=== PATIENT | female | born 1945 | race Asian ===

== ENCOUNTER → 2016-09-25 | Outpatient (CLI) | payer BC ==
--- NOTE | 2016-09-25 12:33 | Diagnostic Imaging Report ---
Indication: Cough Comparison: 04/05/12 2 views of the chest obtained. No definite infiltrate or pulmonary vascular congestion identified. Sternotomy noted. The heart is enlarged. The aorta is mildly enlarged consistent with atherosclerotic vascular disease. The bones are osteopenic. There are surgical clips in the upper abdomen. Impression: No acute disease
== END | disposition home or self-care (01) ==
LOC: RAD 09:29
DX: R05 Cough (principal); M85.80 Other specified disorders of bone density and structure, unspecified site
CPT/HCPCS: 71020

== ENCOUNTER 2016-09-30 07:57 | Outpatient (CLI) | payer BC ==
--- NOTE | 2016-09-30 12:24 | Diagnostic Imaging Report ---
Indication: Osteopenia Technique: Transaxial images of the L1, L2, and L3 vertebral bodies obtained in a Siemens sensation [address] Regions of interest were drawn for both cortical and medullary portions of the bone. Average bone then calculated. Total Dose length Product (DLP): [address] Dose Index Volume (CTDIvol): 0.4, 4.05, 4.32, 4.67 mGy Findings: The patient's bone mineral density is 95.2 mg Ca-ARTHUR/ml. The T score is -2.32 this means that the patient's average bone mineral density is -2.32 standard deviations less than a typical 20-year-old female. The patient's Z score is 0.52. This means that the patient's average bone mineral density is 0.52 standard deviations greater than age-matched controls. Impression: Bone mineral density is 10-25% below that of young normal females. This patient is considered osteopenic by WHO criteria. Insufficiency fracture risk is moderate. The CT scanner at [facility] is accredited by the [employer] and the scans are performed using protocols designed to limit radiation exposure to as low as reasonably achievable to attain images of sufficient resolution adequate for diagnostic evaluation.
== END 2016-09-30 10:30 | disposition home or self-care (01) ==
LOC: CAT 07:57
DX: Z13.820 Encounter for screening for osteoporosis (principal); M85.80 Other specified disorders of bone density and structure, unspecified site
CPT/HCPCS: 77078; G0202; 77067

== ENCOUNTER 2019-01-11 07:03 | Day surgery (SDC) | payer BC ==
[2019-01-05 08:25] LABS: BASOPHILS % (AUTO) 0.9 % (0.0-2.0); EOSINOPHILS % (AUTO) 0.8 % (0.0-3.0); HEMATOCRIT 40.1 % (37.0-47.0); HEMOGLOBIN 13.1 G/DL (12.0-16.0); MEAN CORPUSCULAR VOLUME 93 FL (80-99); MONOCYTES % (AUTO) 7.4 % (1.0-10.0); NEUTROPHILS % (AUTO) 50.8 % (45.0-75.0); PLATELET COUNT 127 K/UL (150-450); RED BLOOD COUNT 4.31 M/UL (4.20-5.40); RED CELL DISTRIBUTION WIDTH 12.5 % (11.6-14.8); WHITE BLOOD COUNT 5.8 K/UL (4.8-10.8)
[2019-01-05 08:42] LABS: ALANINE AMINOTRANSFERASE 37 U/L (12-78); ALBUMIN 4.1 G/DL (3.4-5.0); ALBUMIN/GLOBULIN RATIO 0.9 (1.0-2.7); ALKALINE PHOSPHATASE 55 U/L (46-116); ANION GAP 8 mmol/L (5-15); ASPARTATE AMINO TRANSFERASE 30 U/L (15-37); BILIRUBIN,TOTAL 0.5 MG/DL (0.2-1.0); BLOOD UREA NITROGEN 22 mg/dL (7-18); CALCIUM 9.6 MG/DL (8.5-10.1); CARBON DIOXIDE 27 MMOL/L (21-32); CHLORIDE 103 MMOL/L (98-107); CHOLESTEROL 164 MG/DL (< 200); CREATININE 0.8 MG/DL (0.55-1.30); HDL CHOLESTEROL 66 MG/DL (40-60); POTASSIUM 4.5 MMOL/L (3.5-5.1); SODIUM 138 MMOL/L (136-145); TRIGLYCERIDES 76 MG/DL (30-150)
[~2019-01-11] VITALS: Ht 157.5 cm; Wt 64.0 kg
[2019-01-11] VITALS (8 sets, daily range): BP systolic 102–123; BP diastolic 58–73
[~2019-01-11 07:03] MED LIST: ASPIRIN-LOW81 MG ORAL; BENICAR5 MG ORAL; JANUMET 50-1,01 EACH ORAL; LOPRESSOR HCT1 EAC3 ORAL; MAGNESIUM100 MG PO; NORVASC5 MG ORAL; VITAMIN B125000 MCG PO; ZOCOR10 MG ORAL
--- NOTE | 2019-01-11 07:12 | Pre-Procedure Note/Attestation ---
Pre-Procedure Note/Attestation Complete Prior to Procedure Planned Procedure: left - Removal of cataract and placement of intraocular lens , left eye Procedure Narrative: Removal of cataract and placement of intraocular lens, left eye Indications for Procedure Pre-Operative Diagnosis: Cataract, combined, left eye Attestation I attest that I discussed the nature of the procedure; its benefits; risks and complications; and alternatives (and the risks and benefits of such alternatives ), prior to the procedure, with the patient (or the patient's legal ocean import representative). I attest that, if there was a reasonable possibility of needing a blood transfusion, the patient (or the patient's legal ocean import representative) was given the [place] [facility] Services standardized written summary, pursuant to the [place] Blood Safety Act ([place] Health and Safety Code # 1645, as amended). I attest that I re-evaluated the patient just prior to the surgery and that there has been no change in the patient's H&P, except as documented below: Constantine Najera MD Jan 11, 2019 07:11
[2019-01-11] MEDS: Akten 3.5% 1ml Btl LEFT EYE SCH ×3 (08:03→08:34)
[2019-01-11] MEDS: Cyclopentolate 1% Opth Sol 2ml LEFT EYE SCH ×3 (08:04→08:33)
[2019-01-11] MEDS: Tobradex Opth Susp 2.5ml LEFT EYE SCH ×3 (08:04→08:34)
[2019-01-11] MEDS: Flurbiprofen 0.03% Opth Sol 2.5ml LEFT EYE SCH ×3 (08:04→08:34)
[2019-01-11] MEDS: Phenylephrine 10% Opth Soln 5ml LEFT EYE SCH ×3 (08:04→08:33)
[2019-01-11] MEDS: Ciprofloxacin Opth Soln 2.5ml LEFT EYE SCH ×3 (08:04→08:34)
[2019-01-11] MEDS: Tropicamide 1% Opth 15ml Soln LEFT EYE SCH ×3 (08:04→08:33)
[2019-01-11] MEDS ORDERED: Pred Forte 1% Opth Susp 1ml ONE (09:01)
[2019-01-11] MEDS ORDERED: Lidocaine 1% MPF 10mg/ml 5ml ONE ×2 (09:01→09:30)
[2019-01-11] MEDS ORDERED: Fluorescein Strips ONE (09:01)
[2019-01-11] MEDS ORDERED: EPINEPHrine 1mg/1ml Amp ONE (09:01)
[2019-01-11] MEDS ORDERED: Timolol 0.5% Op Soln 2.5ml ONE (09:01)
[2019-01-11] MEDS ORDERED: Carbachol 0.01% Op Soln 1.5ml vial ONE (09:01)
[2019-01-11] MEDS ORDERED: Dexamethasone 4mg/ml vial ONE (09:02)
[2019-01-11] MEDS ORDERED: Povidone-Iodine 5% opth solution ONE (09:02)
[2019-01-11] MEDS ORDERED: BSS 500ml btl ONE (09:02)
[2019-01-11] MEDS ORDERED: Polysporin Opth Oint 3.5gm ONE (09:02)
[2019-01-11] MEDS ORDERED: Tetracaine 0.5% Opth 4ml Soln ONE (09:02)
[2019-01-11] MEDS ORDERED: BSS 15ml BTL ONE (09:02)
[2019-01-11] MEDS ORDERED: Acetylcholine Injection (OR) ONE (09:02)
[2019-01-11] MEDS ORDERED: Sodium Hyaluronate 10 mg/ml 0.85ml ONE ×2 (09:03→10:39)
[2019-01-11] MEDS ORDERED: Bupivacaine 0.75% 30ml vial INJ ONE (09:03)
[2019-01-11] MEDS ORDERED: Sterile Water Irrig 1000ml IRRIG ONE (09:30)
[2019-01-11] MEDS ORDERED: LR 1000ml ONE (09:30)
[2019-01-11] MEDS ORDERED: Propofol 200mg/20ml IV ONE (09:30)
[2019-01-11] MEDS ORDERED: NS Irrig 1000ml ONE (09:30)
[2019-01-11] MEDS ORDERED: LR 1000ml 1,000 ML IVLG SCH (09:36)
--- NOTE | 2019-01-11 09:39 | Anethesia Preoperative Eval ---
Anesthesia Pre-op PMH/ROS General Date of Evaluation: Jan 11, 2019 Time of Evaluation: 09:24 Anesthesiologist: Asuncion ASA Score: ASA 3 Mallampati Score Class I : Soft palate, uvula, fauces, pillars visible Class II: Soft palate, uvula, fauces visible Class III: Soft palate, base of uvula visible Class IV: Only hard plate visible Mallampati Classification: Class II Surgeon: Reinaldo Diagnosis: Cataract OS Surgical Procedure: Cat Ext IOL OS Anesthesia History: none Family History: no anesthesia problems Allergies: Coded Allergies: No Known Allergies (Unverified , 04/08/14) Medications: see eMAR Patient NPO?: Yes Past Medical History Cardiovascular: Reports: HTN, valve dz - Aortic Valve replacement, other - HL Gastrointestinal/Genitourinary: Reports: GERD Endocrine: Reports: DM HEENT: Reports: cataract (L) PSxH Narrative: Oophorectomy, TL, Cholecystectomy, AVR Anesthesia Pre-op Phys. Exam Physician Exam Last Vital Signs Date Time Temp Pulse Resp B/P (MAP) Pulse Ox O2 Delivery O2 Flow Rate FiO2 01/11/19 08:11 97.3 77 18 123/73 96 Room Air Constitutional: NAD Neurologic: CN 2-12 intact Cardiovascular: RRR Respiratory: CTA Gastrointestinal: S/NT/ND Airway Exam Mallampati Score: Class II MO: limited ROM: limited Teeth: missing, intact Anesthesia Pre-op A/P Risk Assessment & Plan Assessment: ASA 3 Plan: TIVA Status Change Before Surgery: No J Luis Roland MD Jan 11, 2019 09:39
[2019-01-11] MEDS ORDERED: Meperidine 50mg/ml Inj(FOR RIGORS ONLY) IVP PRN (09:45)
[2019-01-11] MEDS ORDERED: Labetalol 5mg/ml 20ml vial IV PRN (09:45)
[2019-01-11] MEDS ORDERED: HYDROcodone/Acetamin 7.5/325 tab ORAL PRN (09:45)
[2019-01-11] MEDS ORDERED: Metoclopramide 10mg/2ml Inj IVP PRN (09:45)
[2019-01-11] MEDS ORDERED: LORazepam Inj 2mg/ml 1ml IV PRN (09:45)
[2019-01-11] MEDS ORDERED: Hydromorphone 0.5mg/0.5ml inj IVP PRN (09:45)
[2019-01-11] MEDS ORDERED: HYDROcodone/Acetamin 5/325 tab ORAL PRN (09:45)
[2019-01-11] MEDS ORDERED: Midazolam 2mg/2ml Inj IVP PRN (09:45)
[2019-01-11] MEDS ORDERED: Ketorolac 30mg Inj IV PRN ×2 (09:45)
[2019-01-11] MEDS ORDERED: DiphenhydrAMINE 50mg/ml Inj IVP PRN (09:45)
[2019-01-11] MEDS ORDERED: Atropine Sulfate 0.4mg/ml inj IVP PRN (09:45)
[2019-01-11] MEDS ORDERED: oxyCODONE HCL/Acetaminophen 5/325mg ORAL PRN (09:45)
[2019-01-11] MEDS ORDERED: fentaNYL 100 mcg/2 mL IV PRN (09:45)
--- NOTE | 2019-01-11 09:51 | Immediate Post-Op Evaluation ---
Immediate Post-Op Evalulation Immediate Post-Op Evalulation Procedure: Cat Ext IOL OS Date of Evaluation: Jan 11, 2019 Time of Evaluation: 10:50 IV Fluids: 600 LR Blood Products: 0 Estimated Blood Loss: 1 Urinary Output: 0 Blood Pressure Systolic: 116 Blood Pressure Diastolic: 65 Pulse Rate: 78 Respiratory Rate: 16 O2 Sat by Pulse Oximetry: 98 Temperature (Fahrenheit): 97 Pain Score (1-10): 1 Nausea: No Vomiting: No Complications 0 Patient Status: awake, reacts, patent, none Hydration Status: adequate J Luis Roland MD Jan 11, 2019 09:51
--- NOTE | 2019-01-11 09:52 | 48 Hour Post Anesthesia Eval ---
Post Anesthesia Evaluation Procedure: Cat Ext IOL OS Date of Evaluation: Jan 11, 2019 Time of Evaluation: 13:09 Blood Pressure Systolic: 118 0: 66 Pulse Rate: 63 Respiratory Rate: 18 Temperature (Fahrenheit): 97.4 O2 Sat by Pulse Oximetry: 97 Airway: patent Nausea: No Vomiting: No Pain Intensity: 1 Hydration Status: adequate Cardiopulmonary Status: Stable Mental Status/LOC: patient returned to baseline Follow-up Care/Observations: 0 Post-Anesthesia Complications: 0 Follow-up care needed: ready to discharge J Luis Roland MD Jan 11, 2019 09:52
--- NOTE | 2019-01-11 10:39 | Discharge Instructions ---
Discharge Instructions Discharge Instructions Follow Up Orders Wear shield at all times except to place eye drops Continue preop eye drops Followup tomorrow in Dr Najera's office For Congestive Heart Failure Reminder Report to your physician any weight gain of 5 pounds or more in one week. Constantine Najera MD Jan 11, 2019 10:39
--- NOTE | 2019-01-11 10:43 | Brief Operative Note ---
Immediate Post Operative Note Operative Note Pre-op Diagnosis: Cataract, combined, left eye Procedure: Phaco PC IOL OS Use of vision blue for capsular staining Post-op Diagnosis: Cataract, combined, OS Post-op Diagnosis: same as pre-op Surgeon: Misha Najera MD MS Additional Surgeons: none Anesthesiologist: Dr Roland Anesthesia: local, MAC Specimen: none Complications: none Fluids: see chart Implant(s) used?: Yes - [employer]idson [employer] ZCB00 power 19.0 Constantine Najera MD Jan 11, 2019 10:43
--- NOTE | 2019-01-11 16:45 | Operative Note - Dictated ---
DATE OF OPERATION: 01/11/2019 SURGEON: Constantine Najera M.D. FRONT END WEB DESIGNER SURGEON: None. ANESTHESIOLOGIST: Dr. J Luis Roland. ANESTHESIA: Local/standby/monitored anesthesia care. PREOPERATIVE DIAGNOSIS: Cataract, combined, left eye. POSTOPERATIVE DIAGNOSIS: Cataract, combined, left eye. PROCEDURE: 1. Phacoemulsification of cataract, left eye. 2. Placement of posterior chamber intraocular lens, left eye (model Agarwal, [employer]ecnis, ZCB00, power 19.0). 3. Use of VisionBlue for capsular staining. COMPLICATIONS: None. SPECIMENS: None. INDICATIONS FOR SURGERY: The patient has had the painless progressive decrease in visual acuity in left eye secondary to cataract. The patient understands the risks of surgery including infection, bleeding, need for further surgery, loss of vision, no improvement in vision, loss of the eye, loss of life, glaucoma, retinal detachment, and understands these risks and elects to proceed with surgery. FINDINGS: The patient had a +3 posterior subcapsular cataract in addition to a +3 nuclear cataract and +3 cortical cataract with +3 anterior subcapsular changes. This made it very difficult to visualize the anterior capsule. Using the red reflex and VisionBlue for capsular staining was needed and was used during the procedure without complications. OPERATIVE NOTE: After informed consent was obtained, the patient was brought into the operating room and placed in supine position. Cardiac and respiratory monitors were attached. A time-out was performed and all criteria were met and everyone in the room agreed. The left eye was then draped and prepped in sterile manner for ocular surgery. A lid speculum was placed in the eye. A 1% lidocaine preservative-free was injected at the approximate 2:30 limbus. A conjunctival peritomy from approximately 2 o'clock to 3 o'clock was made and dissected anteriorly. Hemostasis was maintained with bipolar cautery. A paracentesis was made approximately 5:30 and Shugarcaine was injected into the anterior chamber followed by an air bubble. VisionBlue was then injected into the anterior chamber and the anterior capsule was stained and then the Vision Blue was irrigated from the anterior chamber. The anterior chamber was then entered using a 2.6 mm keratome through the limbal incision. An anterior capsulorrhexis was then performed. Hydrodissection and hydrodelineation of the lens was then performed. The lens was then phacoemulsified using divide and conquer four-quadrant technique. Residual cortical material was then aspirated. Healon was injected into the anterior chamber and capsular bag. The lens was taken from its package, placed into the cartridge and the tip of the cartridge was placed through the limbal incision. The lens was injected into the capsular bag and centered nicely with a Sinskey hook. Healon was then aspirated from the anterior chamber and capsular bag. One 10-0 nylon interrupted suture was then placed through the limbal incision, the knot was rotated and buried. Care was taken during the entire procedure not to touch the endothelium. The wounds were checked and found to be watertight. The wounds were also hydrated closed. The conjunctiva was then closed with forceps cautery. The lid speculum drapes and the drain was removed from the eye and drops of Pred Forte, TobraDex, and ciprofloxacin were applied to the eye followed by bacitracin ointment and a shield. The patient tolerated the procedure well and left the operating room awake, alert, and in stable condition. Constantine Najera M.D. DR: KELTON JOB#: [id number] CC:
== END 2019-01-11 11:55 | disposition home or self-care (01) ==
LOC: SUR 07:03
DX: H25.042 Posterior subcapsular polar age-related cataract, left eye (principal); H25.12 Age-related nuclear cataract, left eye; H25.012 Cortical age-related cataract, left eye; I10 Essential (primary) hypertension; E78.00 Pure hypercholesterolemia, unspecified; E11.9 Type 2 diabetes mellitus without complications; Z95.2 Presence of prosthetic heart valve; K21.9 Gastro-esophageal reflux disease without esophagitis; Z90.721 Acquired absence of ovaries, unilateral; Z90.49 Acquired absence of other specified parts of digestive tract
CPT/HCPCS: 36415; 66984; 80053; 80061; 82306; 82607; 82962; 83735; 85025; 85610; 85730; J0171; J1100; J2704; V2632; 94003; 94150

== ENCOUNTER 2019-07-12 08:52 | Day surgery (SDC) | payer BC ==
[2019-07-07 08:47] LABS: ALANINE AMINOTRANSFERASE 30 U/L (12-78); ALBUMIN/GLOBULIN RATIO 0.8 (1.0-2.7); ALKALINE PHOSPHATASE 55 U/L (46-116); ANION GAP 9 mmol/L (5-15); ASPARTATE AMINO TRANSFERASE 25 U/L (15-37); BILIRUBIN,TOTAL 0.3 MG/DL (0.2-1.0); BLOOD UREA NITROGEN 31 mg/dL (7-18); CALCIUM 9.9 MG/DL (8.5-10.1); CARBON DIOXIDE 27 MMOL/L (21-32); CHLORIDE 109 MMOL/L (98-107); CHOLESTEROL 158 MG/DL (< 200); CREATININE 1.1 MG/DL (0.55-1.30); HDL CHOLESTEROL 60 MG/DL (40-60); POTASSIUM 4.9 MMOL/L (3.5-5.1); SODIUM 145 MMOL/L (136-145); TRIGLYCERIDES 84 MG/DL (30-150)
[2019-07-07 08:48] LABS: BASOPHILS % (AUTO) 0.7 % (0.0-2.0); EOSINOPHILS % (AUTO) 0.5 % (0.0-3.0); HEMATOCRIT 39.5 % (37.0-47.0); HEMOGLOBIN 13.6 G/DL (12.0-16.0); LYMPHOCYTES % (AUTO) 39.5 % (20.0-45.0); MEAN CORPUSCULAR VOLUME 87 FL (80-99); MONOCYTES % (AUTO) 7.3 % (1.0-10.0); PLATELET COUNT 118 K/UL (150-450); RED BLOOD COUNT 4.52 M/UL (4.20-5.40); RED CELL DISTRIBUTION WIDTH 12.2 % (11.6-14.8); WHITE BLOOD COUNT 4.9 K/UL (4.8-10.8)
[2019-07-12] VITALS (7 sets, daily range): BP systolic 110–154; BP diastolic 66–77
[~2019-07-12] VITALS: Ht 157.5 cm; Wt 59.0 kg
[~2019-07-12 08:52] MED LIST changes: +PROTONIX20 MG ORAL
[2019-07-12] MEDS ORDERED: Lidocaine 1% MPF 10mg/ml 5ml ONE ×2 (10:03→12:00)
[2019-07-12] MEDS ORDERED: Carbachol 0.01% Op Soln 1.5ml vial ONE (10:03)
[2019-07-12] MEDS ORDERED: Lidocaine 4% Amp 5ml ONE (10:03)
[2019-07-12] MEDS ORDERED: EPINEPHrine 1mg/1ml Amp ONE (10:03)
[2019-07-12] MEDS ORDERED: Polysporin Opth Oint 3.5gm ONE (10:04)
[2019-07-12] MEDS ORDERED: prednisoLONE acetate 1% Opth Susp 1ml ONE (10:04)
[2019-07-12] MEDS ORDERED: Fluorescein Strips ONE (10:04)
[2019-07-12] MEDS ORDERED: timoloL maleate 0.5% Op Soln 2.5ml ONE (10:04)
[2019-07-12] MEDS ORDERED: Dexamethasone 4mg/ml vial ONE (10:04)
[2019-07-12] MEDS ORDERED: BSS 15ml BTL ONE (10:05)
[2019-07-12] MEDS ORDERED: Tetracaine 0.5% Opth 4ml Soln ONE (10:05)
[2019-07-12] MEDS ORDERED: BSS 500ml btl ONE (10:05)
[2019-07-12] MEDS ORDERED: Povidone-Iodine 5% opth solution ONE (10:05)
[2019-07-12] MEDS ORDERED: Sodium Hyaluronate 10 mg/ml 0.85ml ONE (10:06)
--- NOTE | 2019-07-12 10:14 | Pre-Procedure Note/Attestation ---
Pre-Procedure Note/Attestation Complete Prior to Procedure Planned Procedure: right Procedure Narrative: Removal of cataract and placement of intraocular lens, right eye Indications for Procedure Pre-Operative Diagnosis: Cataract, right eye Attestation I attest that I discussed the nature of the procedure; its benefits; risks and complications; and alternatives (and the risks and benefits of such alternatives ), prior to the procedure, with the patient (or the patient's legal employer relations representative). I attest that, if there was a reasonable possibility of needing a blood transfusion, the patient (or the patient's legal employer relations representative) was given the [facility] standardized written summary, pursuant to the [place] Blood Safety Act ([place] Health and Safety Code # 1645, as amended). I attest that I re-evaluated the patient just prior to the surgery and that there has been no change in the patient's H&P, except as documented below: Constantine Najera MD Jul 12, 2019 10:14
[2019-07-12] MEDS ORDERED: Ciprofloxacin Opth Soln 2.5ml ONE (10:23)
[2019-07-12] MEDS: Cyclopentolate 1% Opth Sol 2ml RIGHT EYE SCH ×3 (10:25→10:47)
[2019-07-12] MEDS: Tropicamide 1% Opth 15ml Soln RIGHT EYE SCH ×3 (10:25→10:47)
[2019-07-12] MEDS: Ciprofloxacin Opth Soln 2.5ml RIGHT EYE SCH ×3 (10:26→10:47)
[2019-07-12] MEDS: Tobradex Opth Susp 2.5ml RIGHT EYE SCH ×3 (10:26→10:47)
[2019-07-12] MEDS: Akten 3.5% 1ml Btl RIGHT EYE SCH ×3 (10:26→10:47)
--- NOTE | 2019-07-12 10:29 | Anethesia Preoperative Eval ---
Anesthesia Pre-op PMH/ROS General Date of Evaluation: Jul 12, 2019 Anesthesiologist: Ilya ASA Score: ASA 3 Mallampati Score Class I : Soft palate, uvula, fauces, pillars visible Class II: Soft palate, uvula, fauces visible Class III: Soft palate, base of uvula visible Class IV: Only hard plate visible Mallampati Classification: Class II Surgeon: Reinaldo Diagnosis: Right cataract Surgical Procedure: Right cataract extraction with IOL Anesthesia History: none Family History: no anesthesia problems Allergies: Coded Allergies: No Known Allergies (Unverified , 04/08/14) Medications: see eMAR Patient NPO?: Yes NPO Date: Jul 12, 2019 NPO Time: 00:00 Past Medical History Cardiovascular: Reports: HTN, valve dz - s/p AVR, other - HLD; Denies: CAD, CA, arrhythmia Pulmonary: Denies: asthma, COPD, SKYLER, other Gastrointestinal/Genitourinary: Reports: other - gastritis; Denies: GERD, CRI, ESRD Neurologic/Psychiatric: Denies: dementia, CVA, depression/anxiety, TIA, other Endocrine: Reports: DM; Denies: hypothyroidism, steroids, other HEENT: Denies: cataract (L), cataract (R), glaucoma, [place] (L), [place] (R), other Hematology/Immune: Denies: anemia, DVT, bleeding disorder, other Musculoskeletal/Integumentary: Denies: OA, RA, DJD, DDD, edema, other PSxH Narrative: left cataract, AVR, khai, appy, BSO, BTL Anesthesia Pre-op Phys. Exam Physician Exam Last Vital Signs Date Time Temp Pulse Resp B/P (MAP) Pulse Ox O2 Delivery O2 Flow Rate FiO2 07/12/19 09:30 97.4 58 14 129/71 95 Room Air Constitutional: NAD Cardiovascular: RRR Respiratory: CTA Airway Exam Mallampati Score: Class II MO: full ROM: full Anesthesia Pre-op A/P Labs see chart Studies Pre-op Studies: EKG - sr, CXR - no acute cardiopulmonary process Risk Assessment & Plan Assessment: ASA III Plan: MAC Status Change Before Surgery: No Pre-Antibiotics Drug: N/A Mary Grace Mckeon MD Jul 12, 2019 10:29
[2019-07-12] MEDS: Phenylephrine 10% Opth Soln 5ml RIGHT EYE SCH ×3 (10:39→10:48)
[2019-07-12] MEDS ORDERED: DiphenhydrAMINE 50mg/ml Inj ONE (11:53)
[2019-07-12] MEDS ORDERED: LR 1000ml 1,000 ML IVLG SCH (11:59)
[2019-07-12] MEDS ORDERED: Sterile Water Irrig 1000ml IRRIG ONE (12:00)
[2019-07-12] MEDS ORDERED: DiphenhydrAMINE 50mg/ml Inj IVP PRN (12:00)
[2019-07-12] MEDS ORDERED: LR 1000ml ONE (12:00)
[2019-07-12] MEDS ORDERED: NS Irrig 1000ml ONE (12:00)
[2019-07-12] MEDS ORDERED: Propofol 200mg/20ml IV ONE (12:15)
--- NOTE | 2019-07-12 13:10 | Immediate Post-Op Evaluation ---
Immediate Post-Op Evalulation Immediate Post-Op Evalulation Procedure: Right cataract [id number] with IOL Date of Evaluation: Jul 12, 2019 Time of Evaluation: 13:10 IV Fluids: 200 Blood Products: 0 Estimated Blood Loss: 0 Urinary Output: 0 Blood Pressure Systolic: 154 Blood Pressure Diastolic: 70 Pulse Rate: 63 Respiratory Rate: 16 O2 Sat by Pulse Oximetry: 98 Temperature (Fahrenheit): 97.6 Pain Score (1-10): 0 Nausea: No Vomiting: No Complications 0 Patient Status: awake, reacts, patent, none Hydration Status: adequate Drug: N/A Mary Grace Mckeon MD Jul 12, 2019 13:10
--- NOTE | 2019-07-12 13:11 | 48 Hour Post Anesthesia Eval ---
Post Anesthesia Evaluation Procedure: Right cataract [id number] with IOL Date of Evaluation: Jul 12, 2019 Airway: patent Nausea: No Vomiting: No Pain Intensity: 0 Hydration Status: adequate Cardiopulmonary Status: at baseline Mental Status/LOC: patient returned to baseline Post-Anesthesia Complications: 0 Follow-up care needed: ready to discharge Mary Grace Mckeon MD Jul 12, 2019 13:11
--- NOTE | 2019-07-12 13:13 | Brief Operative Note ---
Immediate Post Operative Note Operative Note Pre-op Diagnosis: Cataract, right eye Procedure: Phaco PC IOL OD Use of vision blue for capsular staining Post-op Diagnosis: Cataract, combined, right eye (anterior subcapsular and cortical cataract, nuclear cataract) Post-op Diagnosis: same as pre-op plus Surgeon: Misha Najera MD MS Office Cashier: none Anesthesiologist: Dr Smith Anesthesia: local, MAC Specimen: none Complications: none Fluids: see chart Estimated Blood Loss: minimal Implant(s) used?: Yes - zcb00 19.5 Constantine Najera MD Jul 12, 2019 13:13
--- NOTE | 2019-07-12 13:14 | Discharge Instructions ---
Discharge Instructions Discharge Instructions Follow Up Orders Wear shield at all times except to place eye drops Continue preop eye drops Followup tomorrow in Dr Najera's office Return to Work/School on: Jul 12, 2019 For Congestive Heart Failure Reminder Report to your physician any weight gain of 5 pounds or more in one week. Constantine Najera MD Jul 12, 2019 13:14
--- NOTE | 2019-07-13 23:30 | Operative Note - Dictated ---
DATE OF OPERATION: 07/12/2019 SURGEON: Constantine Najera M.D. DIABETES MANAGER SURGEON: None. ANESTHESIOLOGIST: Mary Grace Smith M.D. ANESTHESIA: Local/standby/monitored anesthesia care. PREOPERATIVE DIAGNOSIS: Cataract, combined, right eye. POSTOPERATIVE DIAGNOSES: 1. Cataract, combined, right eye. 2. Dense anterior subcapsular cataract with cortical changes, which interfered with the view during capsulotomy. PROCEDURE: 1. Phacoemulsification of cataract, right eye. 2. Placement of posterior chamber intraocular lens, right eye (model ZCB00, power 19.5). 3. Use of VisionBlue for capsular staining. INDICATIONS FOR SURGERY: The patient has had painless progressive decrease in visual acuity in the right eye secondary to cataract. The patient understands the risks of surgery including infection, bleeding, need for further surgery, loss of vision, no improvement in vision, loss of the eye, loss of life, glaucoma, and retinal detachment, understands these risks and elects to proceed with surgery. FINDINGS: The patient had a +2 to 3 nuclear sclerotic cataract as well as a +2 cortical cataract, but the cortical cataract also extended anteriorly and becoming the anterior subcapsular cataract and interfering with the view during the capsulotomy necessitating the use of VisionBlue for capsular staining. OPERATIVE NOTE: After informed consent was obtained, the patient was brought into the operating room, and placed in supine position. Cardiac and respiratory monitors were attached. A time-out was performed and all criteria were met and everyone agreed. The right eye was draped and prepped in sterile manner for ocular surgery. A lid speculum was placed in the eye. A 1% lidocaine preservative-free was injected at the 9 o'clock limbus. Conjunctival peritomy from 8:30 to 9:30 was made and dissected posteriorly. Hemostasis was maintained with bipolar cautery. A 2.4 mm limbal incision was made centered at approximately 9 o'clock and dissected anteriorly. The paracentesis was made at approximately 12 o'clock and Shugarcaine was injected into the anterior chamber followed by air. VisionBlue was then injected into the anterior chamber and the anterior capsule was stained and Vision Blue was irrigated from the anterior chamber. The anterior chamber was then entered using a 2.4 mm keratome through the limbal incision. An anterior capsulorrhexis was then safely performed. Hydrodissection and hydrodelineation of the lens was then performed. The lens was then phacoemulsified using divide and conquer four-quadrant technique. Residual cortical material was then aspirated. Healon was injected into the anterior chamber and capsular bag. The lens was taken from its package, placed into the cartridge, and the tip of the cartridge was placed through the limbal incision. The lens was injected into the capsular bag and centered nicely with a Sinskey hook. The intraocular lens was aligned along the 9 o'clock to 3 o'clock axis and both haptics and the optic were visualized and were in the capsular bag. Healon was aspirated from the anterior chamber and capsular bag. One 10-0 nylon interrupted suture was then placed through the limbal incision. The knot was rotated and buried. Care was taken during the entire procedure not to touch the endothelium. The wounds were checked and found to be watertight. The conjunctiva was then closed with forceps cautery. The intraocular lens was again inspected and it was found to have the optic and both haptics in the capsular bag centered along the 9 o'clock to 3 o'clock meridian. The lid speculum was draped and removed from the eye and drops of moxifloxacin and Pred Forte were applied to the eye followed by Maxitrol and then a shield. The patient tolerated the procedure well and left the operating room awake, alert, and in stable condition. Constantine Najera M.D. DR: JAMES JOB#: [id number] CC:
== END 2019-07-12 14:10 | disposition home or self-care (01) ==
LOC: SUR 08:52
DX: H25.11 Age-related nuclear cataract, right eye (principal); H25.011 Cortical age-related cataract, right eye; I10 Essential (primary) hypertension; E78.5 Hyperlipidemia, unspecified; E11.9 Type 2 diabetes mellitus without complications; Z90.89 Acquired absence of other organs; Z90.49 Acquired absence of other specified parts of digestive tract; E78.00 Pure hypercholesterolemia, unspecified; I05.0 Rheumatic mitral stenosis
CPT/HCPCS: 36415; 66982; 80053; 80061; 82962; 83036; 85025; 85610; 85730; J0171; J1100; J1200; J2704; J7120; V2632; 94003; 94150